=== PATIENT | female | born 1980 | race Caucasian/White ===

== ENCOUNTER 2019-10-05 18:13 | Emergency (ER) | payer MEDICAID, OTHER ==
[~2019-10-05] VITALS: Ht 167.6 cm; Wt 93.0 kg
[2019-10-05] MEDS ORDERED: DIFL500T PO (20:19)
[2019-10-05] MEDS ORDERED: ketorolac trometh inj. 60 MG/2 ML VIAL IM ONE (20:20)
[2019-10-05] MEDS ORDERED: ketorolac trometh. 30mg/ml inj. IM ONE (20:20)
[2019-10-05 20:23] VITALS: BP 159/80
== END 2019-10-05 20:32 | disposition home or self-care (01) ==
LOC: ER 18:14
DX: S13.9XXA Sprain of joints and ligaments of unspecified parts of neck, initial encounter (principal); S09.90XA Unspecified injury of head, initial encounter; G89.29 Other chronic pain; F12.90 Cannabis use, unspecified, uncomplicated; Z88.0 Allergy status to penicillin; Z79.899 Other long term (current) drug therapy; Y08.89XA Assault by other specified means, initial encounter; Y93.89 Activity, other specified; Y92.481 Parking lot as the place of occurrence of the external cause; Y99.8 Other external cause status
CPT/HCPCS: 70450; 72125; 96372; 99284; J1885

== ENCOUNTER 2020-02-16 22:42 | Emergency (ER) | payer MEDICAID, OTHER ==
[~2020-02-16] VITALS: Ht 167.6 cm; Wt 109.1 kg
[~2020-02-16 22:42] MED LIST: DIFL500T PO
[2020-02-17] MEDS ORDERED: ketorolac trometh. 30mg/ml inj. IM ONE (01:00)
[2020-02-17] MEDS ORDERED: HYDROcodone/acetaminophen 5mg/325mg tablet PO ONE (01:00)
[2020-02-17] MEDS ORDERED: cyclobenzaprine 10mg tablet PO ONE (01:00)
[2020-02-17] MEDS ORDERED: NAPR-56 PO (01:03)
[2020-02-17] MEDS ORDERED: CYCL-1 PO (01:03)
[2020-02-17 01:16] VITALS: BP 119/72
== END 2020-02-17 01:17 | disposition home or self-care (01) ==
LOC: ER 22:43
DX: R07.89 Other chest pain (principal); M25.512 Pain in left shoulder; G89.29 Other chronic pain; F12.90 Cannabis use, unspecified, uncomplicated; Z88.0 Allergy status to penicillin; Z79.899 Other long term (current) drug therapy
CPT/HCPCS: 71045; 93005; 96372; 99283; J1885

== ENCOUNTER 2020-06-15 18:08 | Emergency (ER) | payer MEDICAID ==
[~2020-06-15] VITALS: Ht 167.6 cm; Wt 101.7 kg
[~2020-06-15 18:08] MED LIST changes: +CYCL-1 PO
[2020-06-15 18:13] VITALS: BP 136/92
[2020-06-15] MEDS ORDERED: ketorolac trometh inj. 60 MG/2 ML VIAL IM ONE (19:00)
== END 2020-06-15 19:33 | disposition home or self-care (01) ==
LOC: ER 18:08 → ED HOLD 18:49 → ER 19:33
DX: S93.692A Other sprain of left foot, initial encounter (principal); G89.29 Other chronic pain; F12.90 Cannabis use, unspecified, uncomplicated; Z88.0 Allergy status to penicillin; Z79.899 Other long term (current) drug therapy; W18.39XA Other fall on same level, initial encounter; Y93.89 Activity, other specified; Y92.89 Other specified places as the place of occurrence of the external cause; Y99.8 Other external cause status
CPT/HCPCS: 73610; 96372; 99283; J1885